=== PATIENT | female | born 1940 | race Caucasian/White ===

== ENCOUNTER 2017-08-18 14:06 | Emergency (ER) | payer MEDICARE ==
[~2017-08-18] VITALS: Ht 167.6 cm; Wt 94.1 kg
[2017-08-18 14:11] VITALS: BP 169/74; PULSE 81; RESP 16; TEMP 98.3; O2SAT 94
[2017-08-18] MEDS ORDERED: PRIM50TA5 PO (14:36)
[2017-08-18] MEDS ORDERED: PRAV40TA2 PO (14:36)
[2017-08-18] MEDS ORDERED: LISI30TA4 PO (14:36)
[2017-08-18] MEDS ORDERED: HYDR25TA5 PO (14:36)
[2017-08-18] MEDS ORDERED: AFRI0.052 EACH NARE (14:38)
[2017-08-18] MEDS ORDERED: FLUT1SPR5 EACH NARE (14:38)
--- NOTE | 2017-08-18 14:50 | PD ---
HPI . Epistaxis Chief Complaint: Nosebleed Time Seen by Provider: 14:35 Travel History International Travel<30 days: No Contact w/Intl Traveler<30days: No Traveled to known affect area: No History of Present Illness HPI This patient presents with epistaxis. Onset was a week. She states that she is having one to 2 episodes of epistaxis daily. She also reports "sinuses." She states that her bleeding is getting progressively worse. She does not take any anticoagulants or antiplatelets. PFSH Past Medical History Hx Anticoagulant Therapy: No Cancer: Yes (BREAST) Cardiovascular Problems: Yes (htn on meds) High Cholesterol: Yes Diabetes: No Diminished Hearing: No Hypertension: Yes Medical other: Yes (TREMORS) Tetanus Vaccination: Unknown ?: Not Past Surgical History Eye Surgery: Yes (BILAT. CATARACT REMOVAL) Gynecologic Surgery: Yes (LEFT BREAST LUMPECTOMY) Tonsillectomy: Yes Other Surgery: Yes (BLADDER INSERT) Social History Alcohol Use: Yes (OCC) Tobacco Use: No Substance Use: No Allergies-Medications (Allergen,Severity, Reaction): Coded Allergies: Sulfa (Sulfonamide Antibiotics) (Verified Allergy, Intermediate, skin rash , 08/18/17) Reported Meds & Prescriptions Reported Meds & Active Scripts Active Afrin Nasal Harmony (Oxymetazoline HCl) 0.05% Harmony 2-3 Harmony EACH NARE Q12H PRN Flonase Nasal Harmony (Fluticasone Nasal Harmony) 50 Mcg/Act Harmony 100 Mcg EACH NARE BID Reported Hydrochlorothiazide 25 Mg Tab 25 Mg PO DAILY Primidone 50 Mg Tab 50 Mg PO TID Lisinopril 30 Mg Tab 30 Mg PO DAILY Pravastatin 40 Mg Tab 40 Mg PO DAILY Review of Systems Except as stated in HPI: all other systems reviewed are Neg HENT: Positive: Congestion, Nosebleed Physical Exam Narrative GENERAL: Awake and alert and in no acute distress. SKIN: Warm and dry. HEAD: Normocephalic/atraumatic. EYES: Pupils are equal. Extraocular movements are intact. ENT: Edema and hyperemia of the left nasal turbinate. The right side looks normal. No active bleeding. NECK: Normal range of motion. RESPIRATORY: Nonlabored respirations. MUSCULOSKELETAL: Atraumatic. NEUROLOGICAL: Nonfocal. PSYCHIATRIC: Appropriate mood and affect. Data Data Last Documented VS Vital Signs Date Time Temp Pulse Resp B/P (MAP) Pulse Ox O2 Delivery O2 Flow Rate FiO2 08/18/17 14:11 98.3 81 16 169/74 (105) 94 Orders Orders Ed Discharge Order (08/18/17 14:39) MDM Medical Decision Making Medical Screen Exam Complete: Yes Emergency Medical Condition: Yes Differential Diagnosis Differential diagnosis includes but is not limited to epistaxis due to an upper respiratory infection, coagulopathy, local trauma, nasal fracture Narrative Course This patient presents with a weeklong history of intermittent epistaxis. See medication, she has allergic rhinitis. Interestingly, it seems to involve only the left nostril. The patient has been discharged to home with instructions to use Afrin as needed for bleeding. Flonase nasal spray daily until symptoms have completely resolved. She has also been instructed to keep her mucous membranes moist. Diagnosis Primary Impression: Allergic rhinitis Qualified Codes: J30.2 - Other seasonal allergic rhinitis Additional Impression: Epistaxis Patient Instructions: General Instructions, Nosebleed (ED), Allergic Rhinitis ( ED) Departure Forms: Tests/Procedures Additional Instructions: Use a saline nasal spray twice daily to keep your mucous membranes moist. You can also coat the inside of your nose with Vaseline to keep it moist. A humidifier is also a good idea. Keep Afrin on hand in case it bleeds again. If bleeding occurs, squirt several sprays of Afrin into the side that is bleeding then put cotton balls in your nose, sit upright and pinch for 10 solid minutes. This will likely control the bleeding. If it does not, return here. Scripts Oxymetazoline Nasal (Afrin Nasal Harmony) 0.05% Harmony 2-3 SPRAY EACH NARE Q12H Y for bleeding, #1 BOTTLE 0 Refills Prov: Thania Sebastian MD 08/18/17 Fluticasone Nasal Harmony (Flonase Nasal Harmony) 50 Mcg/Act Harmony 100 MCG EACH NARE BID for Allergies, #1 BOTTLE 0 Refills Prov: Thania Sebastian MD 08/18/17 Disposition: 01 DISCHARGE HOME Condition: Stable Thania Sebastian MD Aug 18, 2017 14:50
== END 2017-08-18 15:27 | disposition home or self-care (01) ==
LOC: PHEFT 14:06
DX: J30.2 Other seasonal allergic rhinitis (principal); R04.0 Epistaxis; I10 Essential (primary) hypertension
CPT/HCPCS: 99283